=== PATIENT | male | born 1960 | race Caucasian/White ===

== ENCOUNTER → 2018-03-14 12:26 | Outpatient (CLI) | payer BC ==
[2016-06-17 09:18] VITALS: BMI 32.8
[~2018-03-14 12:26] MED LIST: ATENOLOL25 MG PO; CRESTOR20 MG PO; NORCO 10/325 TA1 TA1 PO; PROTONIX40 MG PO
== END | disposition home or self-care (01) ==
LOC: D.NM 12:26
DX: R10.9 Unspecified abdominal pain (principal)